=== PATIENT | female | born 1965 | race Caucasian/White ===

== ENCOUNTER 2020-03-22 22:33 | Inpatient (IN) | payer OTHER ==
[~2020-03-22] VITALS: Ht 167.6 cm; Wt 72.0 kg
[2020-03-22] MEDS ORDERED: [UNRECOGNIZED DRUG - OTHER] (22:41)
[2020-03-22] MEDS ORDERED: INTEGRA CAPSUL1 EACH (22:41)
== END 2020-03-27 13:37 | disposition home or self-care (01) | DRG 389 ==
LOC: ER 22:33 → SURG 03-23 02:35 → SURH 03-23 02:35 → SURG 03-23 10:13
PROVIDERS: ADMIT Surgery; ATTEND Surgery
PROC: BW21Y0Z Computerized Tomography (CT Scan) of Abdomen and Pelvis using Other Contrast, Unenhanced and Enhanced (ICD-10-PCS; principal; 2020-03-23)
PROC: BW40ZZZ Ultrasonography of Abdomen (ICD-10-PCS; 2020-03-23)
PROC: 02HV33Z Insertion of Infusion Device into Superior Vena Cava, Percutaneous Approach (ICD-10-PCS; 2020-03-24)
PROC: 3E0436Z Introduction of Nutritional Substance into Central Vein, Percutaneous Approach (ICD-10-PCS; 2020-03-24)
DX: K56.690 Other partial intestinal obstruction (principal); R18.8 Other ascites

== ENCOUNTER 2020-04-01 08:01 | Outpatient (CLI) | payer OTHER ==
[~2020-04-01 08:01] MED LIST: INTEGRA CAPSUL1 EACH; [UNRECOGNIZED DRUG - OTHER]
== END 2020-04-01 08:07 | disposition home or self-care (01) ==
LOC: TOM 08:01
PROVIDERS: ATTEND Surgery
DX: K56.699 Other intestinal obstruction unspecified as to partial versus complete obstruction (principal)

== ENCOUNTER → 2020-04-04 | Outpatient (CLI) | payer OTHER | END | disposition home or self-care (01) | LOC: RX STUDY 07:45 | PROVIDERS: ATTEND Surgery | DX: K56.600 Partial intestinal obstruction, unspecified as to cause (principal) ==

== ENCOUNTER 2021-10-22 10:39 | Emergency (ER) | payer OTHER ==
[~2021-10-22] VITALS: Ht 172.7 cm; Wt 76.2 kg
== END 2021-10-22 12:40 | disposition home or self-care (01) ==
LOC: ER 10:39
DX: M25.511 Pain in right shoulder (principal)

== ENCOUNTER 2023-06-18 08:12 | Outpatient (CLI) | payer OTHER | END 2023-06-18 08:20 | disposition home or self-care (01) | LOC: RAD 08:12 | PROVIDERS: ATTEND Plastic Surgery | DX: Z01.818 Encounter for other preprocedural examination (principal); R07.9 Chest pain, unspecified ==